=== PATIENT | female | born 1990 | race Caucasian/White ===

== ENCOUNTER 2021-09-21 09:30 | Emergency (ER) | payer BC ==
[~2021-09-21] VITALS: Ht 162.6 cm; Wt 95.3 kg
[2021-09-21] MEDS ORDERED: ARIP2TAB3 PO (09:48)
[2021-09-21] MEDS ORDERED: GABA-532 PO (09:48)
[2021-09-21] MEDS ORDERED: SERT100T PO (09:48)
[2021-09-21] MEDS ORDERED: SULF1TAB48 PO (10:03)
[2021-09-21] MEDS ORDERED: CEPH500C2 PO (10:03)
--- NOTE | 2021-09-21 10:08 | NUR ---
Gave pt RX and d/c instructions, pt verbalized understanding.
== END 2021-09-21 10:10 | disposition home or self-care (01) ==
LOC: ER 09:30
DX: S21.041A Puncture wound with foreign body of right breast, initial encounter (principal); L08.9 Local infection of the skin and subcutaneous tissue, unspecified; W26.8XXA Contact with other sharp object(s), not elsewhere classified, initial encounter; Y93.89 Activity, other specified; Y92.89 Other specified places as the place of occurrence of the external cause
CPT/HCPCS: A4663